=== PATIENT | male | born 1975 | race Caucasian/White ===

== ENCOUNTER 2017-09-08 19:48 | Emergency (ER) | payer SELFPAY ==
[~2017-09-08] VITALS: Ht 172.7 cm; Wt 158.8 kg
[~2017-09-08 19:48] MED LIST: CLINDAMYCIN HC300 MG PO; HYDROCODONE BIT1 T11 PO
[2017-09-08 20:26] LABS: BILIRUBIN NEGATIVE (NEGATIVE); BLOOD NEGATIVE (NEGATIVE); CLARITY CLEAR (CLEAR); COLOR YELLOW (YELLOW); GLUCOSE NEGATIVE (NEGATIVE); KETONE NEGATIVE (NEGATIVE); LEUKO ESTERASE TRACE (NEGATIVE); NITRITE NEGATIVE (NEGATIVE); PH 5.5 (5.0-9.0); SPECIFIC GRAVITY <= 1.005 (1.005-1.030); UROBILINOGEN 0.2 E.U./dl (0.2-1.0)
[2017-09-08 20:27] LABS: BASO # 0.1 10*3/uL (0.0-0.1); BASO % 0.5 % (0.0-1.0); EOS # 0.1 10*3/uL (0.0-0.4); EOS % 0.8 % (1.0-4.0); HEMATOCRIT 44.2 % (42.0-52.0); HEMOGLOBIN 15.1 g/dl (14.0-18.0); LYMPH # 1.9 10*3/uL (1.3-4.4); LYMPH % 17.6 % (27.0-41.0); MEAN CELL VOLUME 86.7 fl (80.0-94.0); MEAN CORPUSCULAR HGB 29.6 pg (27.0-31.0); MEAN CORPUSCULAR HGB CONC 34.2 g/dl (33.0-37.0); MEAN PLATELET VOLUME 10.4 fl (9.6-12.3); MONO # 0.6 10*3/uL (0.1-1.0); MONO % 5.2 % (3.0-9.0); NEUT # 7.9 10*3/uL (2.3-7.9); NEUT % 75.5 % (47.0-73.0); PLATELET COUNT AUTOMATED 232 10*3/uL (130-400); RED CELL DISTRI WIDTH 13.4 % (0-14.5); WHITE BLOOD COUNT 10.5 10*3/uL (4.8-10.8)
[2017-09-08 20:38] LABS: BACTERIA TRACE
[2017-09-08 20:43] LABS: BUN 4 mg/dl (7-24); CHLORIDE 103 mmol/L (98-107); POTASSIUM 3.4 mmol/L (3.5-5.1); SGOT/AST 31 IU/L (3-35); SGPT/ALT 26 U/L (12-78); SODIUM 136 mmol/L (136-145); TOTAL PROTEIN 7.7 gm/dL (6.4-8.2)
[2017-09-08 20:44] LABS: ALKALINE PHOSPHATASE 75 U/L (45-117)
[2017-09-08 20:45] LABS: TROPONIN I < 0.015 ng/ml (<0.045)
[2017-09-08 20:52] LABS: THYROID STIM HORMONE (HS) 0.623 uIU/ml (0.358-4.75)
[2017-09-08 20:54] LABS: ALBUMIN 3.9 gm/dl (3.1-4.5)
== END 2017-09-08 22:34 | disposition home or self-care (01) ==
LOC: ED 19:48
PROVIDERS: Emergency Medicine Emergency Medical Services
DX: F41.1 Generalized anxiety disorder (principal); F43.0 Acute stress reaction; R73.9 Hyperglycemia, unspecified; J02.9 Acute pharyngitis, unspecified; R00.2 Palpitations; F17.200 Nicotine dependence, unspecified, uncomplicated

== ENCOUNTER 2017-09-24 16:43 | Emergency (ER) | payer SELFPAY ==
[~2017-09-24] VITALS: Ht 172.7 cm; Wt 154.2 kg
[2017-09-24] MEDS ORDERED: VISTARIL25 MG PO (17:45)
[2017-09-24] MEDS ORDERED: NYST SUSP PO (17:45)
== END 2017-09-24 17:47 | disposition home or self-care (01) ==
LOC: ED 16:43
DX: B37.0 Candidal stomatitis (principal); Z90.89 Acquired absence of other organs

== ENCOUNTER 2017-10-08 14:43 | Emergency (ER) | payer SELFPAY ==
[~2017-10-08] VITALS: Ht 172.7 cm; Wt 154.2 kg
[~2017-10-08 14:43] MED LIST changes: +NYST SUSP PO; +VISTARIL25 MG PO
[2017-10-08] MEDS ORDERED: FLUCONAZOLE100 MG PO (15:15)
== END 2017-10-08 15:22 | disposition home or self-care (01) ==
LOC: ED 14:43
DX: B37.89 Other sites of candidiasis (principal); E11.9 Type 2 diabetes mellitus without complications

== ENCOUNTER 2020-05-26 20:01 | Emergency (ER) | payer OTHER ==
[~2020-05-26] VITALS: Wt 140.6 kg
[~2020-05-26 20:01] MED LIST changes: +FLUCONAZOLE100 MG PO
[2020-05-26] MEDS ORDERED: IBU800 MG PO (22:54)
[2020-05-26] MEDS ORDERED: SEPTDS PO (22:54)
[2020-05-26] MEDS ORDERED: CYCLOBENZAPRINE5 M3 PO (22:54)
== END 2020-05-26 23:24 | disposition home or self-care (01) ==
LOC: ED 20:01
DX: S89.91XA Unspecified injury of right lower leg, initial encounter (principal); M70.41 Prepatellar bursitis, right knee; W18.39XA Other fall on same level, initial encounter; Y93.89 Activity, other specified; Y92.89 Other specified places as the place of occurrence of the external cause; Y99.8 Other external cause status

== ENCOUNTER 2021-02-01 13:45 | Emergency (ER) | payer OTHER ==
[~2021-02-01] VITALS: Ht 172.7 cm; Wt 140.6 kg
[~2021-02-01 13:45] MED LIST changes: +CYCLOBENZAPRINE5 M3 PO; +IBU800 MG PO; +SEPTDS PO
[2021-02-01] MEDS ORDERED: ROBAXIN-750750 MG PO (15:55)
[2021-02-01] MEDS ORDERED: NAPROSYN500 MG PO (15:55)
== END 2021-02-01 15:53 | disposition home or self-care (01) ==
LOC: ED 13:45
DX: S39.012A Strain of muscle, fascia and tendon of lower back, initial encounter (principal); Z79.899 Other long term (current) drug therapy; X58.XXXA Exposure to other specified factors, initial encounter; Y93.89 Activity, other specified; Y92.89 Other specified places as the place of occurrence of the external cause; Y99.8 Other external cause status

== ENCOUNTER 2021-03-18 18:39 | Emergency (ER) | payer OTHER ==
[~2021-03-18] VITALS: Wt 141.1 kg
[~2021-03-18 18:39] MED LIST changes: +NAPROSYN500 MG PO; +ROBAXIN-750750 MG PO
[2021-03-18] MEDS ORDERED: NAPROSYN500 MG PO (21:24)
== END 2021-03-18 21:52 | disposition home or self-care (01) ==
LOC: ED 18:39
DX: S50.12XA Contusion of left forearm, initial encounter (principal); Z79.899 Other long term (current) drug therapy; W19.XXXA Unspecified fall, initial encounter; Y93.89 Activity, other specified; Y92.89 Other specified places as the place of occurrence of the external cause; Y99.8 Other external cause status

== ENCOUNTER 2021-10-25 17:04 | Emergency (ER) | payer OTHER ==
[~2021-10-25] VITALS: Ht 172.7 cm; Wt 136.1 kg
[2021-10-25 17:33] LABS: BASO # 0.1 10*3/uL (0.0-0.1); BASO % 0.7 % (0.0-1.0); EOS # 0.4 10*3/uL (0.0-0.4); EOS % 4.1 % (1.0-4.0); HEMATOCRIT 46.7 % (42.0-52.0); LYMPH # 2.8 10*3/uL (1.3-4.4); LYMPH % 27.4 % (27.0-41.0); MEAN CELL VOLUME 87.3 fl (80.0-94.0); MEAN CORPUSCULAR HGB 28.4 pg (27.0-31.0); MEAN CORPUSCULAR HGB CONC 32.5 g/dl (33.0-37.0); MEAN PLATELET VOLUME 10.4 fl (9.6-12.3); MONO # 0.7 10*3/uL (0.1-1.0); MONO % 7.2 % (3.0-9.0); NEUT # 6.1 10*3/uL (2.3-7.9); NEUT % 59.7 % (47.0-73.0); PLATELET COUNT AUTOMATED 207 10*3/uL (130-400); RED BLOOD COUNT 5.35 10*6/uL (4.50-5.90); RED CELL DISTRI WIDTH 14.1 % (0-14.5); WHITE BLOOD COUNT 10.2 10*3/uL (4.8-10.8)
[2021-10-25 17:47] LABS: ALBUMIN 3.7 gm/dl (3.1-4.5); ALKALINE PHOSPHATASE 80 U/L (45-117); BUN 15 mg/dl (7-24); CHLORIDE 109 mmol/L (98-107); CREATININE 0.95 mg/dL (0.70-1.30); POTASSIUM 4.1 mmol/L (3.5-5.1); SGOT/AST 14 IU/L (3-35); SGPT/ALT 24 U/L (12-78); SODIUM 140 mmol/L (136-145)
== END 2021-10-25 19:10 | disposition home or self-care (01) ==
LOC: ED 17:04
PROVIDERS: Internal Medicine
DX: I47.1 Supraventricular tachycardia (principal)

== ENCOUNTER → 2021-12-18 | Outpatient (CLI) | payer OTHER ==
[~2021-12-18] MED LIST changes: +ASPIRIN81 M1 PO; +LEXAPRO10 MG PO; +LIPITOR10 MG PO; +LOPRESSOR50 M1 PO; +METFORMIN HYD1000 MG PO; +MOBIC15 MG PO; +VISTARIL50 MG PO
== END | disposition home or self-care (01) ==
LOC: CARD 00:58
PROVIDERS: ATTEND Internal Medicine Cardiovascular Disease
DX: I47.1 Supraventricular tachycardia (principal)

== ENCOUNTER → 2022-07-09 | Outpatient (CLI) | payer OTHER | END | disposition home or self-care (01) | LOC: D 10:03 | PROVIDERS: ATTEND Internal Medicine | DX: E11.9 Type 2 diabetes mellitus without complications (principal); Z79.899 Other long term (current) drug therapy ==

== ENCOUNTER 2022-08-16 12:51 | Emergency (ER) | payer OTHER ==
[~2022-08-16] VITALS: Ht 172.7 cm; Wt 134.3 kg
[2022-08-16] MEDS ORDERED: NAPROSYN500 MG PO (15:59)
== END 2022-08-16 17:32 | disposition home or self-care (01) ==
LOC: ED 12:51
DX: M54.50 Low back pain, unspecified (principal); Z79.899 Other long term (current) drug therapy; Z79.82 Long term (current) use of aspirin; Z90.89 Acquired absence of other organs

== ENCOUNTER 2023-11-04 12:11 | Emergency (ER) | payer OTHER ==
[~2023-11-04] VITALS: Ht 172.7 cm; Wt 113.4 kg
[2023-11-04] MEDS ORDERED: AMOX-CLAV 875-1 EACH PO ×3 (12:56→14:07)
== END 2023-11-04 13:08 | disposition home or self-care (01) ==
LOC: ED 12:11
DX: H66.91 Otitis media, unspecified, right ear (principal); E11.65 Type 2 diabetes mellitus with hyperglycemia; I10 Essential (primary) hypertension; F41.9 Anxiety disorder, unspecified; E78.5 Hyperlipidemia, unspecified; Z90.89 Acquired absence of other organs

== ENCOUNTER 2024-01-14 21:27 | Emergency (ER) | payer OTHER ==
[~2024-01-14] VITALS: Ht 172.7 cm; Wt 117.9 kg
[~2024-01-14 21:27] MED LIST changes: +AMOX-CLAV 875-1 EACH PO
[2024-01-14] MEDS ORDERED: CLINDAMYCIN HCL 300 MG CAPSULE PO ONE (21:55)
[2024-01-14] MEDS ORDERED: CLINDAMYCIN HC300 MG PO (22:15)
== END 2024-01-14 22:00 | disposition home or self-care (01) ==
LOC: ED 21:27
DX: K13.0 Diseases of lips (principal); Z79.899 Other long term (current) drug therapy; Z79.82 Long term (current) use of aspirin

== ENCOUNTER → 2024-02-26 | Outpatient (CLI) | payer OTHER | END | disposition home or self-care (01) | LOC: RAD 11:17 | PROVIDERS: ATTEND Nurse Practitioner Family | DX: R05.3 Chronic cough (principal) ==

== ENCOUNTER → 2024-10-01 | Outpatient (CLI) | payer OTHER | END | disposition home or self-care (01) | LOC: RAD 13:31 | PROVIDERS: ATTEND Nurse Practitioner Family | DX: R10.13 Epigastric pain (principal) ==

== ENCOUNTER → 2024-10-14 | Outpatient (CLI) | payer OTHER | END | disposition home or self-care (01) | LOC: CT 10:55 | PROVIDERS: ATTEND Nurse Practitioner Family | DX: K80.20 Calculus of gallbladder without cholecystitis without obstruction (principal); K57.30 Diverticulosis of large intestine without perforation or abscess without bleeding; N20.0 Calculus of kidney; D35.01 Benign neoplasm of right adrenal gland ==

== ENCOUNTER → 2024-10-25 | Outpatient (CLI) | payer OTHER ==
[2024-10-25 14:53] LABS: BASO # 0.1 10*3/uL (0.0-0.1); EOS # 0.4 10*3/uL (0.0-0.4); EOS % 3.6 % (1.0-4.0); HEMATOCRIT 46.1 % (42.0-52.0); MEAN CELL VOLUME 89.7 fl (80.0-94.0); MEAN CORPUSCULAR HGB 28.4 pg (27.0-31.0); MEAN CORPUSCULAR HGB CONC 31.7 g/dl (33.0-37.0); MEAN PLATELET VOLUME 9.8 fl (9.6-12.3); MONO # 0.6 10*3/uL (0.1-1.0); MONO % 6.1 % (3.0-9.0); NEUT # 6.9 10*3/uL (2.3-7.9); NEUT % 68.1 % (47.0-73.0); PLATELET COUNT AUTOMATED 221 10*3/uL (130-400); RED BLOOD COUNT 5.14 10*6/uL (4.50-5.90); RED CELL DISTRI WIDTH 13.2 % (0-14.5); WHITE BLOOD COUNT 10.1 10*3/uL (4.8-10.8)
[2024-10-25 15:28] LABS: ALKALINE PHOSPHATASE 92 U/L (46-116); BUN 14 mg/dl (9-23); CHLORIDE 104 mmol/L (98-107); POTASSIUM 4.6 mmol/L (3.4-5.1); SGPT/ALT 20 U/L (5-49); TOTAL PROTEIN 7.8 gm/dL (6.0-8.0)
[2024-10-26 15:06] LABS: ALDOLASE 6.2 U/L (3.3-10.3)
== END | disposition home or self-care (01) ==
LOC: LAB 13:40
PROVIDERS: ATTEND Urology
DX: D35.01 Benign neoplasm of right adrenal gland (principal)

== ENCOUNTER → 2024-10-27 | Outpatient (CLI) | payer OTHER | END | disposition home or self-care (01) | LOC: LAB 13:27 | PROVIDERS: ATTEND Urology | DX: D35.01 Benign neoplasm of right adrenal gland (principal) ==

== ENCOUNTER 2024-11-24 13:17 | Emergency (ER) | payer OTHER ==
[~2024-11-24] VITALS: Wt 131.5 kg
[2024-11-24] MEDS ORDERED: AVPAK AZITHROM250 M1 PO (14:03)
== END 2024-11-24 14:36 | disposition home or self-care (01) ==
LOC: ED 13:17
DX: J40 Bronchitis, not specified as acute or chronic (principal); F41.9 Anxiety disorder, unspecified; E11.9 Type 2 diabetes mellitus without complications; I10 Essential (primary) hypertension; E78.5 Hyperlipidemia, unspecified; Z90.89 Acquired absence of other organs

== ENCOUNTER → 2024-11-30 | Outpatient (CLI) | payer OTHER ==
[~2024-11-30] MED LIST changes: +AVPAK AZITHROM250 M1 PO
[2024-11-30 10:21] LABS: BILIRUBIN Negative (Negative); BLOOD 2+ (Negative); CLARITY Cloudy (Clear); COLOR Yellow (Yellow); GLUCOSE Negative (Negative); KETONE Negative (Negative); LEUKO ESTERASE 3+ (Negative); NITRITE Negative (Negative); UROBILINOGEN 0.2 E.U./dl (0.0-1.0)
[2024-11-30 10:22] LABS: BASO # 0.1 10*3/uL (0.0-0.1); BASO % 0.7 % (0.0-1.0); EOS # 0.5 10*3/uL (0.0-0.4); EOS % 5.2 % (1.0-4.0); HEMATOCRIT 42.8 % (42.0-52.0); MEAN CELL VOLUME 88.8 fl (80.0-94.0); MEAN CORPUSCULAR HGB 28.2 pg (27.0-31.0); MEAN CORPUSCULAR HGB CONC 31.8 g/dl (33.0-37.0); MEAN PLATELET VOLUME 9.3 fl (9.6-12.3); MONO # 0.5 10*3/uL (0.1-1.0); MONO % 5.9 % (3.0-9.0); NEUT # 5.5 10*3/uL (2.3-7.9); NEUT % 61.7 % (47.0-73.0); PLATELET COUNT AUTOMATED 220 10*3/uL (130-400); RED BLOOD COUNT 4.82 10*6/uL (4.50-5.90); RED CELL DISTRI WIDTH 13.4 % (0-14.5); WHITE BLOOD COUNT 8.8 10*3/uL (4.8-10.8)
[2024-11-30 10:38] LABS: BACTERIA TRACE; RBC TNTC rbc/hpf (0-2); WBC TNTC wbc/hpf (0-5)
[2024-11-30 10:52] LABS: ALKALINE PHOSPHATASE 91 U/L (46-116); BUN 12 mg/dl (9-23); CHLORIDE 104 mmol/L (98-107); POTASSIUM 4.3 mmol/L (3.4-5.1); SGPT/ALT 20 U/L (5-49); T3 UPTAKE 26.9 % (22.4-36.7); THYROXINE (T4) TOTAL 6.3 ug/dl (4.5-10.9)
== END | disposition home or self-care (01) ==
LOC: LAB 09:47 → CT 09:47
PROVIDERS: ATTEND Urology
DX: K80.20 Calculus of gallbladder without cholecystitis without obstruction (principal); N20.0 Calculus of kidney; E27.8 Other specified disorders of adrenal gland; E83.50 Unspecified disorder of calcium metabolism; R31.9 Hematuria, unspecified

== ENCOUNTER → 2024-12-02 | Outpatient (CLI) | payer OTHER | END | disposition home or self-care (01) | LOC: LAB 10:28 | PROVIDERS: ATTEND Urology | DX: N20.0 Calculus of kidney (principal); E83.50 Unspecified disorder of calcium metabolism; R31.9 Hematuria, unspecified ==

== ENCOUNTER → 2025-03-23 | Outpatient (CLI) | payer OTHER | END | disposition home or self-care (01) | LOC: CT 08:00 | PROVIDERS: ATTEND Urology | DX: D35.01 Benign neoplasm of right adrenal gland (principal); N20.0 Calculus of kidney; K80.20 Calculus of gallbladder without cholecystitis without obstruction; E27.8 Other specified disorders of adrenal gland ==

== ENCOUNTER → 2025-04-14 | Outpatient (CLI) | payer OTHER | END | disposition home or self-care (01) | LOC: CT 07:56 | PROVIDERS: ATTEND Urology | DX: K76.0 Fatty (change of) liver, not elsewhere classified (principal); N20.0 Calculus of kidney; K80.20 Calculus of gallbladder without cholecystitis without obstruction; D35.01 Benign neoplasm of right adrenal gland ==

== ENCOUNTER → 2025-07-11 | Outpatient (CLI) | payer OTHER | END | disposition home or self-care (01) | LOC: CT 09:00 | PROVIDERS: ATTEND Urology | DX: N20.0 Calculus of kidney (principal); R31.9 Hematuria, unspecified; K80.20 Calculus of gallbladder without cholecystitis without obstruction ==